=== PATIENT | female | born 1990 | race Caucasian/White ===

== ENCOUNTER 2018-09-24 13:58 | Outpatient (CLI) | payer OTHER ==
[~2018-09-24] VITALS: Ht 157.5 cm; Wt 75.0 kg
[2018-09-24 15:55] LABS: MICROSCOPIC INDICATED
== END 2018-09-24 14:41 | disposition home or self-care (01) ==
LOC: LDOP 13:58
PROVIDERS: ATTEND Obstetrics & Gynecology
DX: O26.893 Other specified pregnancy related conditions, third trimester (principal); R55 Syncope and collapse; Z3A.36 36 weeks gestation of pregnancy
CPT/HCPCS: 59025; 81001; 87086; 99211; G0463

== ENCOUNTER 2018-09-24 14:55 | Emergency (ER) | payer OTHER ==
[~2018-09-24] VITALS: Ht 157.5 cm; Wt 75.0 kg
[2018-09-24 15:32] LABS: BASOPHILS # (AUTO) 0.04 x10^3/uL (0-0.1); BASOPHILS % (AUTO) 0 % (0-1); EOSINOPHILS # (AUTO) 0.02 x10^3/uL (0-0.4); EOSINOPHILS % (AUTO) 0 % (1-7); LYMPHOCYTES # (AUTO) 1.34 x10^3/uL (1-3.4); LYMPHOCYTES % (AUTO) 12 % (22-44); MD NO; MEAN CORPUSCULAR HGB CONC 32.4 g/dL (32.4-35.8); MEAN CORPUSCULAR VOLUME 80.2 fL (80-100); MEAN PLATELET VOLUME 7.2 fL (7.4-10.4); MONOCYTES # (AUTO) 0.46 x10^3/uL (0.2-0.8); MONOCYTES % (AUTO) 4 % (2-9); NEUTROPHILS # (AUTO) 9.05 x10^3/uL (1.8-6.8); NEUTROPHILS % (AUTO) 83 % (42-75); PLATELET COUNT 209 x10^3/uL (130-400); RED BLOOD COUNT 3.94 x10^6/uL (3.82-5.3); RED CELL DISTRIBUTION WIDTH 12.9 % (9.6-15.2)
[2018-09-24 15:42] LABS: ALANINE AMINOTRANSFERASE 14 U/L (12-78); ALBUMIN 2.7 g/dL (3.4-5.0); ANION GAP 8 mmol/L (5-15); CALCIUM 8.4 mg/dL (8.5-10.1); CHLORIDE 110 mmol/L (98-107); CREATININE 0.61 mg/dL (0.55-1.02)
--- NOTE | 2018-09-24 15:43 | NUR ---
Pt ambulated to bathroom for urine sample. Pt states that she already provided one in L&D, will notify
[2018-09-24 15:44] LABS: ALKALINE PHOSPHATASE 120 U/L (45-117); BILIRUBIN,TOTAL 0.2 mg/dL (0.2-1.0); TOTAL PROTEIN 6.2 g/dL (6.4-8.2)
--- NOTE | 2018-09-24 15:46 | NUR ---
Lab called regarding urine sample from earlier, [facility] states that the urine is processing and will result under previous visit.
[2018-09-24 16:47] VITALS: BP 110/59
== END 2018-09-24 16:58 | disposition home or self-care (01) ==
LOC: ED 16:39
DX: O26.893 Other specified pregnancy related conditions, third trimester (principal); Z3A.36 36 weeks gestation of pregnancy; R55 Syncope and collapse
CPT/HCPCS: 36415; 80053; 85025; 93005; 99284

== ENCOUNTER 2018-10-12 08:02 | Inpatient (IN) | payer MEDICAID, OTHER ==
[~2018-10-12] VITALS: Ht 157.5 cm; Wt 75.0 kg
[2018-10-12] MEDS ORDERED: OXYTOCIN 30U/ 0.9% NaCL 500ML 500 ML IV PRN (08:04)
[2018-10-12] MEDS ORDERED: OXYTOCIN 30U/ 0.9% NaCL 500ML 500 ML IV ONE (08:04)
[2018-10-12 08:28] LABS: BASOPHILS # (AUTO) 0.02 x10^3/uL (0-0.1); BASOPHILS % (AUTO) 0 % (0-1); EOSINOPHILS # (AUTO) 0.04 x10^3/uL (0-0.4); EOSINOPHILS % (AUTO) 1 % (1-7); LYMPHOCYTES # (AUTO) 1.49 x10^3/uL (1-3.4); LYMPHOCYTES % (AUTO) 19 % (22-44); MD NO; MEAN CORPUSCULAR HEMOGLOBIN 25.4 pg (27.0-34.8); MEAN CORPUSCULAR HGB CONC 32.1 g/dL (32.4-35.8); MEAN CORPUSCULAR VOLUME 79.2 fL (80-100); MEAN PLATELET VOLUME 7.3 fL (7.4-10.4); MONOCYTES # (AUTO) 0.45 x10^3/uL (0.2-0.8); MONOCYTES % (AUTO) 6 % (2-9); NEUTROPHILS # (AUTO) 6.02 x10^3/uL (1.8-6.8); NEUTROPHILS % (AUTO) 75 % (42-75); PLATELET COUNT 207 x10^3/uL (130-400); RED BLOOD COUNT 4.11 x10^6/uL (3.82-5.3); RED CELL DISTRIBUTION WIDTH 13.7 % (9.6-15.2)
[2018-10-12] MEDS ORDERED: METOCLOPRAMIDE 5 MG/ML, 2ML IVPush PRN (08:30)
[2018-10-12] MEDS ORDERED: FENTANYL PF 100 MCG/2ML IVPush PRN (08:30)
[2018-10-12] MEDS ORDERED: ONDANSETRON 2MG/ML, 2ML IVPush PRN (08:30)
[2018-10-12] MEDS ORDERED: TERBUTALINE 1 MG/ML, 1ML IVPush PRN (08:30)
[2018-10-12] MEDS ORDERED: FENTANYL PF 100 MCG/2ML IV PRN (08:30)
[2018-10-12] MEDS ORDERED: CALCIUM CARBONATE 500 MG TAB.CHEW PO PRN (08:30)
[2018-10-12] MEDS ORDERED: SODIUM CITRATE/CITRIC ACID 15 ML UDC PO PRN (08:30)
[2018-10-12] MEDS ORDERED: NEWBORN KIT ONE (08:56)
[2018-10-12] MEDS ORDERED: MISOPROSTOL 200 MCG TABLET ONE (08:56)
[2018-10-12] MEDS ORDERED: OXYTOCIN 30U/ 0.9% NaCL 500ML 500 ML ONE ×2 (08:57→23:22)
[2018-10-12] MEDS: LACTATED RINGERS 1,000 ML IV SCH ×4 (09:00→16:48)
[2018-10-12] MEDS ORDERED: FENTANYL/BUPIV./NS/PF 250 ML EPIDCONT SCH (10:40)
[2018-10-12] MEDS ORDERED: LACTATED RINGERS 1,000 ML IVBOLUS PRN (11:00)
[2018-10-12] MEDS ORDERED: FENTANYL PF 500 MCG, BUPIVACAINE/PF 0.5%, 30ML 62.5 ML in SODIUM CHLORIDE 0.9% 177.5 ML EPIDCONT SCH (11:00)
[2018-10-12] MEDS ORDERED: EPHEDRINE 50 MG/ML, 1ML IVPush PRN (11:00)
[2018-10-12] MEDS ORDERED: BUPIVACAINE 0.25% ONE (11:05)
[2018-10-12] MEDS ORDERED: EPHEDRINE 50 MG/ML, 1ML ONE (11:47)
[2018-10-12] MEDS: D5%-LACTATED RINGERS 1,000 ML IV SCH ×2 (16:04→18:29)
[2018-10-12] MEDS ORDERED: LACTATED RINGERS 1,000 ML INTUTE SCH (17:00)
[2018-10-12] MEDS ORDERED: OXYTOCIN 10 UNITS/ML, 1ML ONE (18:26)
[2018-10-12 19:56] VITALS: BP 87/56
[2018-10-12] MEDS: OXYTOCIN 30U/ 0.9% NaCL 500ML 500 ML IV SCH (23:47)
[2018-10-13] MEDS ORDERED: MISOPROSTOL 200 MCG TABLET PR PRN
[2018-10-13] MEDS ORDERED: DOCUSATE 100 MG CAPSULE PO PRN
[2018-10-13] MEDS ORDERED: OXYcodone/APAP 5/325MG TABLET PO PRN
[2018-10-13] MEDS ORDERED: ONDANSETRON 2MG/ML, 2ML IV PRN
[2018-10-13] MEDS: LACTATED RINGERS 1,000 ML IV SCH (00:04)
[2018-10-13] MEDS: D5%-LACTATED RINGERS 1,000 ML IV SCH (00:04)
[2018-10-13 03:10] VITALS: BP 105/69
[2018-10-13] MEDS: IBUPROFEN 600 MG TABLET PO PRN ×3 (04:58→16:52)
[2018-10-13] MEDS: OXYcodone/APAP 5/325MG TABLET PO PRN ×4 (04:58→21:58)
[2018-10-13 07:30] VITALS: BP_SYST 106; BP_SYST 124; BP_DIAS 70; BP_DIAS 82
[2018-10-13 08:02] LABS: BASOPHILS # (AUTO) 0.06 x10^3/uL (0-0.1); BASOPHILS % (AUTO) 1 % (0-1); EOSINOPHILS # (AUTO) 0.04 x10^3/uL (0-0.4); EOSINOPHILS % (AUTO) 0 % (1-7); LYMPHOCYTES # (AUTO) 1.94 x10^3/uL (1-3.4); LYMPHOCYTES % (AUTO) 15 % (22-44); MD NO; MEAN CORPUSCULAR HEMOGLOBIN 25.3 pg (27.0-34.8); MEAN CORPUSCULAR HGB CONC 31.6 g/dL (32.4-35.8); MEAN CORPUSCULAR VOLUME 79.9 fL (80-100); MEAN PLATELET VOLUME 7.4 fL (7.4-10.4); MONOCYTES # (AUTO) 0.88 x10^3/uL (0.2-0.8); MONOCYTES % (AUTO) 7 % (2-9); NEUTROPHILS # (AUTO) 10.18 x10^3/uL (1.8-6.8); NEUTROPHILS % (AUTO) 78 % (42-75); PLATELET COUNT 191 x10^3/uL (130-400); RED BLOOD COUNT 3.93 x10^6/uL (3.82-5.3); RED CELL DISTRIBUTION WIDTH 13.7 % (9.6-15.2)
[2018-10-13] MEDS ORDERED: PRENATAL VIT/IRON/FA 1 EACH TABLET PO SCH (09:00)
[2018-10-13] MEDS: OXYTOCIN 30U/ 0.9% NaCL 500ML 500 ML IV SCH ×2 (09:47→20:23)
[2018-10-13] MEDS ORDERED: LIDOCAINE/PF 1.5%-EPI 1:200K, 30ML ONE (11:15)
[2018-10-13 14:49] VITALS: BP 109/74
[2018-10-13 19:35] VITALS: BP 123/85
[2018-10-14 01:07] VITALS: BP 111/77
[2018-10-14] MEDS: OXYTOCIN 30U/ 0.9% NaCL 500ML 500 ML IV SCH (02:45)
[2018-10-14] MEDS: IBUPROFEN 600 MG TABLET PO PRN (05:00)
[2018-10-14] MEDS: OXYcodone/APAP 5/325MG TABLET PO PRN (05:01)
[2018-10-14 08:35] VITALS: BP 117/78
[2018-10-14] MEDS ORDERED: MEASLES,MUMPS&RUBELLA VACC/PF 0.5 ML SQ-VACC ONE ×2 (09:30→10:00)
== END 2018-10-14 10:53 | disposition home or self-care (01) | DRG 807 ==
LOC: LDIP 08:02 → 2NW 10-13 02:38
PROVIDERS: ADMIT Obstetrics & Gynecology; ATTEND Obstetrics & Gynecology
PROC: 10907ZC Drainage of Amniotic Fluid, Therapeutic from Products of Conception, Via Natural or Artificial Opening (ICD-10-PCS; principal; 2018-10-12)
PROC: 10E0XZZ Delivery of Products of Conception, External Approach (ICD-10-PCS; 2018-10-12)
PROC: 3E033VJ Introduction of Other Hormone into Peripheral Vein, Percutaneous Approach (ICD-10-PCS; 2018-10-12)
PROC: 3E0R3BZ Introduction of Anesthetic Agent into Spinal Canal, Percutaneous Approach (ICD-10-PCS; 2018-10-12)
PROC: 00HU33Z Insertion of Infusion Device into Spinal Canal, Percutaneous Approach (ICD-10-PCS; 2018-10-12)
PROC: 10H07YZ Insertion of Other Device into Products of Conception, Via Natural or Artificial Opening (ICD-10-PCS; 2018-10-12)
DX: O80 Encounter for full-term uncomplicated delivery (principal); Z37.0 Single live birth; Z3A.39 39 weeks gestation of pregnancy
CPT/HCPCS: 36415; J3490; J7121; S0020; 85025; 86850; 86900; G0378; J3010; J2590; J7050; J7120